=== PATIENT | male | born 2000 | race African-American/Black ===

== ENCOUNTER 2020-10-21 06:35 | Emergency (ER) | payer SELFPAY ==
[~2020-10-21] VITALS: Ht 177.8 cm; Wt 63.2 kg
[2020-10-21 06:53] VITALS: BP 118/70; TEMP 98
[2020-10-21 08:15] VITALS: PULSE 50
== END 2020-10-21 08:15 | disposition home or self-care (01) ==
LOC: COL.ER 06:35
DX: S82.65XA Nondisplaced fracture of lateral malleolus of left fibula, initial encounter for closed fracture (principal); X50.1XXA Overexertion from prolonged static or awkward postures, initial encounter; Y93.67 Activity, basketball
CPT/HCPCS: 31868; L4386